=== PATIENT | female | born 1975 | race Caucasian/White ===

== ENCOUNTER → 2018-11-02 | Outpatient (CLI) | payer OTHER ==
[~2018-11-02] MED LIST: BACLOFEN 10 MG10 MG PO; CHERATUSSIN AC S5 ML PO; CORGARD20 M1 PO; DOXYCYCLINE 10100 M2 PO; GUAIFENESIN/COD10 ML; HYDROCORTISONE30 G9; NORCO 5-325 TA1 EACH PO; TYLENOL SINUS PO; XYZAL5 MG PO; [UNRECOGNIZED DRUG - OTHER]
== END ==
LOC: CAT 15:23
DX: Z13.6 Encounter for screening for cardiovascular disorders (principal); E78.00 Pure hypercholesterolemia, unspecified; I25.10 Atherosclerotic heart disease of native coronary artery without angina pectoris